=== PATIENT | female | born 1985 | race African-American/Black ===

== ENCOUNTER 2022-07-16 19:15 | Emergency (ER) | payer SELFPAY ==
[~2022-07-16] VITALS: Ht 175.3 cm; Wt 68.0 kg
[2022-07-16 20:02] VITALS: BP 121/86
[2022-07-16] MEDS ORDERED: PRED50TA PO (20:19)
== END 2022-07-16 20:23 | disposition home or self-care (01) ==
LOC: ER 19:23
DX: L50.9 Urticaria, unspecified (principal)